=== PATIENT | female | born 1960 | race Caucasian/White ===

== ENCOUNTER 2017-07-13 06:41 | Emergency (ER) | payer MEDICAID ==
[~2017-07-13] VITALS: Ht 160 cm; Wt 59.0 kg
[~2017-07-13 06:41] MED LIST: GABA-530 PO; METH750T3 PO; OXYC-134 PO; TRAM50TA2 PO; VENL150C2 PO; VENL75CA55 PO
[2017-07-13] MEDS ORDERED: ketorolac trometh. 30mg/ml inj. IV ONE (06:55)
[2017-07-13] MEDS ORDERED: HYDROmorphone 1 mg/ml syringe IV ONE (06:55)
[2017-07-13] MEDS ORDERED: ondansetron/PF 4mg/2ml inj IV ONE (06:55)
[2017-07-13] MEDS ORDERED: HYDROmorphone 2mg/ml vial IV ONE (07:25)
[2017-07-13] MEDS ORDERED: HYDROmorphone inj. 0.5 MG/0.5 ML DISP.SYRIN IV ONE (08:15)
[2017-07-13] MEDS ORDERED: HYDROmorphone 1 mg/ml syringe ONE (08:41)
[2017-07-13 10:13] VITALS: BP 112/62
== END 2017-07-13 10:15 | disposition home or self-care (01) ==
LOC: ER 06:41
DX: G89.29 Other chronic pain (principal); R10.2 Pelvic and perineal pain; Z90.710 Acquired absence of both cervix and uterus; Z88.6 Allergy status to analgesic agent; Z79.899 Other long term (current) drug therapy
CPT/HCPCS: 96374; 96375; 96376; 99284; J1170; J1885; J2405

== ENCOUNTER 2017-10-05 10:25 | Emergency (ER) | payer MEDICAID ==
[~2017-10-05] VITALS: Ht 162.6 cm; Wt 49.0 kg
[~2017-10-05 10:25] MED LIST changes: -GABA-530 PO; -OXYC-134 PO
[2017-10-05] MEDS ORDERED: ketorolac tromethamine 15mg/ml inj. IM ONE (11:10)
[2017-10-05] MEDS ORDERED: diazepam 5mg tablet PO ONE (11:10)
[2017-10-05] MEDS ORDERED: morphine 4 MG/ML inj SYRINge IM ONE (12:05)
[2017-10-05 12:22] VITALS: BP 131/59
== END 2017-10-05 12:39 | disposition home or self-care (01) ==
LOC: ER 10:25
DX: G89.29 Other chronic pain (principal); M54.5 Low back pain; Z90.710 Acquired absence of both cervix and uterus; Z90.49 Acquired absence of other specified parts of digestive tract; Z88.0 Allergy status to penicillin; Z79.899 Other long term (current) drug therapy; W01.0XXA Fall on same level from slipping, tripping and stumbling without subsequent striking against object, initial encounter; Y93.89 Activity, other specified; Y92.89 Other specified places as the place of occurrence of the external cause; Y99.8 Other external cause status
CPT/HCPCS: 96372; 99284; J1885; J2270

== ENCOUNTER 2017-11-12 20:12 | Emergency (ER) | payer MEDICAID ==
[~2017-11-12] VITALS: Ht 157.5 cm; Wt 70.5 kg
[2017-11-12] MEDS ORDERED: mag hydrox/Alum hydrox/simeth 30ml oral suspension PO ONE (21:25)
[2017-11-12] MEDS ORDERED: LIDOcaine Viscous 15ml cup MM PRN (21:25)
[2017-11-12] MEDS ORDERED: ondansetron/PF 4mg/2ml inj IV ONE (21:25)
[2017-11-12] MEDS ORDERED: pantoprazole 40 MG vial IV ONE (21:25)
[2017-11-12] MEDS ORDERED: MORPHINE 2MG in 2ml NS syringe IV PRN (21:25)
[2017-11-12] MEDS ORDERED: sucralfate 1gm/10ml UD suspension PO ONE (21:25)
[2017-11-12] MEDS ORDERED: ONDA4TAB9 PO (21:35)
[2017-11-12] MEDS ORDERED: HYDR-565 PO (21:35)
[2017-11-12 21:40] VITALS: BP 144/78
== END 2017-11-12 23:25 | disposition home or self-care (01) ==
LOC: ER 20:12
DX: R10.9 Unspecified abdominal pain (principal); R10.2 Pelvic and perineal pain; R11.2 Nausea with vomiting, unspecified; M54.5 Low back pain; G89.29 Other chronic pain; Z90.710 Acquired absence of both cervix and uterus; Z90.49 Acquired absence of other specified parts of digestive tract; Z79.899 Other long term (current) drug therapy
CPT/HCPCS: 96374; 96375; 99284; C9113; J2274; J2405

== ENCOUNTER 2021-11-03 17:01 | Outpatient (CLI) | payer MEDICARE ==
[~2021-11-03 17:01] MED LIST changes: +METH-798 PO; -METH750T3 PO; -VENL150C2 PO; +VENL150C4 PO
[2021-11-03 17:43] LABS: CLARITY,URINE CLEAR (Clear); COLOR,URINE YELLOW (Yellow); GLUCOSE, URINE NEGATIVE (Neg); KETONES,URINE NEGATIVE (Neg); LEUKOCYTE ESTERASE ,URINE NEGATIVE (Neg); NITRITES, URINE NEGATIVE (Neg); OCCULT BLOOD,URINE NEGATIVE (Neg); PROTEIN,URINE NEGATIVE (Neg); UROBILINOGEN,URINE 0.2 E.U/dL (0.2-1.0)
[2021-11-03 17:47] LABS: UA COLLECTION TYPE NON-SPECIFIED
== END 2021-11-03 23:59 | disposition home or self-care (01) ==
LOC: LAB SPEC 17:01
PROVIDERS: ATTEND General Practice
DX: R10.9 Unspecified abdominal pain (principal); R30.0 Dysuria; N80.3 Endometriosis of pelvic peritoneum
CPT/HCPCS: 81003